=== PATIENT | male | born 1980 | race Caucasian/White ===

== ENCOUNTER 2019-12-17 09:24 | Outpatient (NON) | payer MEDICARE, MEDICAID, SELFPAY ==
[2019-12-19 18:20] LABS: SARS-CoV-2 RNA PCR Negative
== END 2019-12-17 09:25 ==
PROVIDERS: PCP Family Medicine; Visit Provider Family Medicine
DX: Z20.828 Contact with and (suspected) exposure to other viral communicable diseases (principal); R05 Cough
CPT/HCPCS: 87635; C9803; U0003

== ENCOUNTER 2020-01-21 17:35 | Emergency (ER) | payer MEDICARE, MEDICAID, SELFPAY ==
--- NOTE | ~2020-01-21 | XR_ITS ---
XR chest 2V DATE: 01/21/2020 18:18 INDICATION: Cough for 5 weeks. Weight loss. TECHNIQUE: 2 views COMPARISON: None FINDINGS: The right apical is partially obscured by the overlapping chin. Normal heart size. The lungs appear clear. No pleural effusion or pulmonary vascular congestion or pn eumothorax. IMPRESSION: No active cardiopulmonary disease Reviewed, dictated and finalized at location A. [facility] [employer]
[2020-01-21 17:53] VITALS: BP 105/61; PULSE 104; RESP 20; TEMP 36.4; O2SAT 98
--- NOTE | 2020-01-21 17:56 | ED.URI ---
HPI - URI/Sore Throat General Chief Complaint: Upper Respiratory Infection Stated Complaint: cough Time Seen by Provider: 01/21/20 17:55 Source: patient and RN notes reviewed Mode of arrival: ambulatory Limitations: no limitations History of Present Illness HPI Narrative: 39-year-old male with history of developmental delay, nonverbal presents with concern for cough for 5 weeks, decreased appetite, weight loss. His father reports symptoms started with cough, rhinorrhea, nasal congestion 5 weeks ago, at that time he was tested for Covid which was negative. Reports his physician prescribed an antibiotic via telephone, he did not see his physician at that time. Reports his vision has been unable to see him. Reports 2 subsequent doses of antibiotics, totaling 3 rounds of antibiotics in the last 5 weeks. Denies taking any other [id number] cough and cold medicines. Reports decreased appetite, weight loss of 15 pounds in 5 weeks. Reports normal fluid intake, normal amount of urination. Denies shortness of breath, fever, sweats. Reports fatigue MD elicited complaint: cough Related Data Home Medications Medication Instructions Recorded Confirmed citalopram 10 mg PO DAILY 01/21/20 01/21/20 clonazepam 0.5 mg PO BID 01/21/20 01/21/20 divalproex 750 mg PO Q12H 01/21/20 01/21/20 lisinopril 10 mg PO DAILY 01/21/20 01/21/20 lithium carbonate 450 mg PO BID 01/21/20 01/21/20 naltrexone 50 mg PO DAILY 01/21/20 01/21/20 olanzapine 25 mg PO HS 01/21/20 01/21/20 Allergies Allergy/AdvReac Type Severity Reaction Status Date / Time Sulfa (Sulfonamide Allergy Mild HIVES Verified 01/21/20 18:05 Antibiotics) aripiprazole Allergy Unknown Verified 01/21/20 18:05 Review of Systems Review of Systems: Narrative: CONSTITUTIONAL: Denies chills, sweats, or fever. Reports fatigue EYES: Denies visual changes, redness, or discharge. ENT: Reports rhinorrhea. Denies congestion CARDIOVASCULAR: Denies edema. RESPIRATORY: Reports cough. Denies dyspnea. GASTROINTESTINAL: Denies vomiting, diarrhea. Reports decreased appetite GENITOURINARY: Denies decreased urine frequency, incontinence, hematuria. SKIN: Denies rash All systems reviewed & are unremarkable except as noted in HPI and below PMFSH Comments At time of signature, agree with nursing past medical, surgical, social and family history. There is no relevant family history pertinent to the presenting complaint Exam Narrative: Exam Narrative: GENERAL: Well-appearing, well-nourished, and in no acute distress. HEAD: Normocephalic EYES: PERRLA, conjunctivae clear ENT: Nares clear, turbinates erythematous, clear discharge. Mucous membranes moist. TM pearly cage with dull light reflex bilaterally; no tragal tenderness. Oropharynx not erythematous without lesions. Tonsils not enlarged and without exudate, no drooling, no hoarseness, no trismus, uvula midline. NECK: Supple. No lymphadenopathy CHEST: Clear to auscultation, breath sounds equal. No wheezing, rhonchi, rales, or stridor. No respiratory distress, speaks in full sentences. HEART: Regular rate and rhythm. No murmur heard. SKIN: Warm, dry, no rash. NEURO: Alert and oriented x3. PSYCH: Normal mood and affect Course Course Emergency Course: Patient is aware of diagnosis, understands and agrees to treatment plan. Anticipatory guidance given. Patient agrees to follow-up as directed and is aware of reasons to seek care at the emergency department. Portions of this record may have been created with voice recognition software Vital Signs Vital signs: Vital Signs Temperature 97.5 F L 01/21/20 17:53 Pulse Rate 104 H 01/21/20 17:53 Respiratory Rate 01/21/20 17:53 Blood Pressure 105/61 01/21/20 17:53 Pulse Oximetry 98 01/21/20 17:53 Temperature 97.5 F L 01/21/20 17:53 Pulse Rate 104 H 01/21/20 17:53 Respiratory Rate 01/21/20 17:53 Blood Pressure 105/61 01/21/20 17:53 Pulse Oximetry 98 01/21/20 17:53
[2020-01-21 18:37] LABS: Glucose Point of Care 109 (65-105)
--- NOTE | 2020-01-21 18:48 | PC.NURSE ---
Accucheck was 109.
== END 2020-01-21 18:48 | disposition home or self-care (01) ==
PROVIDERS: Emergency Provider Nurse Practitioner; PCP Family Medicine
DX: R05 Cough (principal); I10 Essential (primary) hypertension; L40.50 Arthropathic psoriasis, unspecified; F31.9 Bipolar disorder, unspecified; F41.9 Anxiety disorder, unspecified; R63.4 Abnormal weight loss
CPT/HCPCS: 71046; 82948; 99213; G0463